=== PATIENT | male | born 1970 | race Caucasian/White ===

== ENCOUNTER 2018-12-17 12:51 | Emergency (ER) | payer BC ==
[2018-12-17] MEDS ORDERED: ACETAMINOPHEN-CODEINE 300/30MG TAB ONE (13:00)
== END 2018-12-17 13:28 | disposition home or self-care (01) ==
LOC: EDH 12:51
DX: S43.492A Other sprain of left shoulder joint, initial encounter (principal); W18.39XA Other fall on same level, initial encounter; Y93.01 Activity, walking, marching and hiking; Y92.89 Other specified places as the place of occurrence of the external cause; Y99.8 Other external cause status
CPT/HCPCS: 73030